=== PATIENT | female | born 1980 | race Caucasian/White ===

== ENCOUNTER 2019-02-04 09:43 | Emergency (ER) | payer SELFPAY ==
[~2019-02-04] VITALS: Ht 172.7 cm; Wt 90.7 kg
== END 2019-02-04 11:18 | disposition home or self-care (01) ==
LOC: ED 09:43
DX: M23.92 Unspecified internal derangement of left knee (principal); F17.200 Nicotine dependence, unspecified, uncomplicated; Z88.0 Allergy status to penicillin; Z88.5 Allergy status to narcotic agent
CPT/HCPCS: 73560; 99283